=== PATIENT | male | born 1995 | race Caucasian/White ===

== ENCOUNTER 2017-06-10 13:08 | Emergency (ER) | END 2017-06-10 13:47 | disposition home or self-care (01) ==

== ENCOUNTER 2017-07-28 05:31 | Emergency (ER) | END 2017-07-28 07:49 | disposition home or self-care (01) ==

== ENCOUNTER 2017-11-18 09:01 | Emergency (ER) | END 2017-11-18 15:25 | disposition home or self-care (01) ==

== ENCOUNTER 2019-02-11 11:09 | Inpatient (IN) | payer MEDICAID, OTHER ==
[~2019-02-11] VITALS: Ht 172.7 cm; Wt 112.5 kg
[~2019-02-11 11:09] MED LIST: ACET325T33 PO; ALBU18HF INHALATION; ALBU8.5H8 INH; AZIT250T13 PO; CARB15DR50 BOTH EARS; CETI10CA PO; GUAI5SYR2 PO; OSEL75CA16 PO; PRED20TA PO
[2019-02-11] MEDS ORDERED: ALBUTEROL 0.083% (NEB) 2.5 MG/3 ML AMP HHN STA ×3 (11:53→15:04)
[2019-02-11] MEDS ORDERED: IPRATROPIUM (NEB) 0.5 MG/2.5 ML AMP HHN ONE ×4 (12:00→22:00)
[2019-02-11] MEDS ORDERED: DEXAMETHASONE (1 MG/ML PO SYG) PO ONE (12:00)
[2019-02-11] MEDS ORDERED: SOD CHLORIDE 0.9% 1,000 ML IV STA (15:04)
[2019-02-11] MEDS ORDERED: MAGNESIUM SULFATE 2 GM/50 ML 50 ML IVPB ONE (15:30)
[2019-02-11] MEDS ORDERED: NACL 0.9% 3 ML SYG IV SCH (19:00)
[2019-02-11] MEDS ORDERED: ALBUTEROL 0.083% (NEB) 2.5 MG/3 ML AMP HHN SCH (19:00)
[2019-02-11] MEDS ORDERED: ACETAMINOPHEN 325 MG TAB PO PRN ×2 (19:00)
[2019-02-11] MEDS ORDERED: HYDROCODONE/APAP (5/325) TAB PO PRN (19:00)
[2019-02-11] MEDS ORDERED: morphine 2 MG INJ IV PRN (19:00)
[2019-02-11] MEDS ORDERED: DOCUSATE SODIUM 100 MG CAP PO PRN (19:00)
[2019-02-11] MEDS ORDERED: BISACODYL (EC) 5 MG TAB PO PRN (19:00)
[2019-02-11] MEDS ORDERED: ONDANSETRON 4 MG INJ IV PRN ×2 (19:00)
[2019-02-11] MEDS: AZITHROMYCIN 250 MG TAB PO SCH (19:54)
[2019-02-11] MEDS: FAMOTIDINE 20 MG INJ IV SCH (21:24)
[2019-02-11] MEDS: POTASSIUM CHLORIDE (SR) 20 MEQ TAB PO SCH (21:25)
[2019-02-11] MEDS: OSELTAMIVIR 75 MG CAP PO SCH (21:25)
[2019-02-11] MEDS ORDERED: ALBUTEROL 0.083% (NEB) 2.5 MG/3 ML AMP HHN ONE (21:32)
[2019-02-11] MEDS ORDERED: ALBUTEROL 0.083% (NEB) 2.5 MG/3 ML AMP HHN PRN (22:00)
[2019-02-11] MEDS: METHYLPREDNISOLONE 125 MG INJ IV SCH (23:45)
[2019-02-12 00:30] VITALS: BP 137/70; PULSE 116; RESP 20
[2019-02-12 00:41] VITALS: Ht 172.7 cm; Wt 112.5 kg
[2019-02-12] MEDS: METHYLPREDNISOLONE 125 MG INJ IV SCH ×3 (06:49→17:29)
[2019-02-12 07:33] VITALS: BP 104/55; PULSE 77; RESP 18
[2019-02-12] MEDS ORDERED: ENOXAPARIN 40 MG/0.4 ML SYG SC SCH (09:00)
[2019-02-12] MEDS: AZITHROMYCIN 250 MG TAB PO SCH (09:54)
[2019-02-12] MEDS: FAMOTIDINE 20 MG INJ IV SCH (09:54)
[2019-02-12] MEDS: POTASSIUM CHLORIDE (SR) 20 MEQ TAB PO SCH (09:54)
[2019-02-12] MEDS: OSELTAMIVIR 75 MG CAP PO SCH (09:54)
[2019-02-12 13:44] VITALS: BP 126/70; PULSE 99; RESP 18
== END 2019-02-12 19:40 | disposition home or self-care (01) | DRG 189 ==
LOC: FTE 11:09 → 2NE 18:42
PROVIDERS: ADMIT Internal Medicine; ATTEND Internal Medicine
DX: J96.01 Acute respiratory failure with hypoxia (principal); J45.901 Unspecified asthma with (acute) exacerbation; E88.81 Metabolic syndrome and other insulin resistance
CPT/HCPCS: 71045; 80048; 80053; 83036; 83735; 84100; 84145; 84443; 84484; 85025; 87400; 94640; 94644; 94645; 96365; 96366; J1650; J2930; J3475; J7030